=== PATIENT | male | born 1945 | race Two or more races ===

== ENCOUNTER 2021-04-08 08:41 | Inpatient (IN) | payer OTHER ==
[~2021-04-08] VITALS: Ht 172.7 cm; Wt 100.2 kg
[~2021-04-08 08:41] MED LIST: AMLO-489 PO; ASPI1TAB20 PO; ATEN100T PO; BENA20TA14 PO; CITA-73 PO; DONE6TAB PO; FINA5TAB4 PO; INS7030I SC; MEMA1TAB5 PO; OXYB5SYP4 PO; SIMV-13 PO
[2021-04-08] MEDS ORDERED: GLUCAGON HYDROCHLORIDE (RDNA) 1 MG VIAL IV ONE (12:30)
[2021-04-08] MEDS ORDERED: PROPOFOL 10 MG/ML 20 ML IV ONE (13:25)
[2021-04-08] MEDS ORDERED: BUPIVACAINE 0.5% P/F INJ 10 ML VIAL ONE (13:30)
[2021-04-08] MEDS ORDERED: MIDAZOLAM HCL 2MG/2ML 2ml VIAL (1mg/ml) ONE (13:33)
[2021-04-08] MEDS ORDERED: fentaNYL CITRATE 100 MCG/2 ML VL ONE (13:33)
[2021-04-08] MEDS ORDERED: CIPROFLOXACIN 400MG/200ML 200 ML IV ONE (13:43)
[2021-04-08] MEDS ORDERED: diphenhdrAMINE HCL 50 MG/1 ML VL ONE (13:57)
[2021-04-08] MEDS ORDERED: DexAMETHasone SOD PHOS 10MG/1ML VIAL INJ ONE (13:57)
[2021-04-08] MEDS ORDERED: MORPHINE SULFATE INJECTION 2 MG/ML SYRG IV PRN ×2 (14:15→15:30)
[2021-04-08] MEDS ORDERED: HYDROmorphone HCL 2 MG/ML VL IV PRN (14:15)
[2021-04-08] MEDS ORDERED: LABETALOL HCL 5 MG/ML 4ML SYRINGE IV PRN (14:15)
[2021-04-08] MEDS ORDERED: ACCU-CHEK COMFORT CURVE STRIP VI ONE (14:15)
[2021-04-08] MEDS ORDERED: hydrALAZINE HCL 20 MG/ML VL IV PRN (14:15)
[2021-04-08] MEDS ORDERED: ONDANSETRON HCL 4 MG/2 ML VIAL IV PRN (14:15)
[2021-04-08] MEDS ORDERED: MIDAZOLAM HCL 2MG/2ML 2ml VIAL (1mg/ml) IV PRN (14:15)
[2021-04-08] MEDS ORDERED: ePHEDrine SULFATE 50 MG/ML AMP IV PRN (14:15)
[2021-04-08] MEDS ORDERED: GLYCOPYRROLATE 0.2 MG/ML 1ML VIAL ONE (15:05)
[2021-04-08] MEDS ORDERED: NITROGLYCERIN 0.4 MG SL TAB SL PRN (15:30)
[2021-04-08 20:00] VITALS: BP 155/60
[2021-04-08 22:00] VITALS: BP 154/72
[2021-04-09 05:00] VITALS: BP 128/83
[2021-04-09 09:03] VITALS: BP 135/86
[2021-04-09 13:10] VITALS: BP 128/81
[2021-04-09 16:26] VITALS: BP 146/85
[2021-04-09 22:00] VITALS: BP 140/88
[2021-04-09] MEDS: ATORVASTATIN 20 MG TAB PO SCH (22:47)
[2021-04-09] MEDS: DONEPEZIL HYDROCHLORIDE 5 MG TAB PO SCH (22:47)
[2021-04-09] MEDS: MEMANTINE HCL 5 MG TAB PO SCH (22:47)
[2021-04-10 05:00] VITALS: BP 159/104
[2021-04-10 05:58] LABS: Basophils # (auto) 0 10 ^3/uL (0-0.2); Basophils % (auto) 0.3 % (0.0-2.0); Eosinophils # (auto) 0.2 10 ^3/uL (0-0.8); Eosinophils % (auto) 1.6 % (0.0-7.0); Hematocrit 46.9 % (41.0-53.0); Hemoglobin 16.5 g/dL (13.5-17.5); Mean Corpuscular Hemoglobin 29.7 pg (28.0-32.0); Mean Corpuscular Hgb Conc. 35.2 g/dL (32.0-36.0); Mean Corpuscular Volume 84.5 fL (80.0-100.0); Monocytes # (auto) 1.2 10 ^3/uL (0-1.3); Monocytes % (auto) 9.6 % (0.0-12.0); Neutrophils # (auto) 8.8 10 ^3/uL (1.6-8.6); Neutrophils % (auto) 72.5 % (37.0-80.0); Nucleated Red Blood Cells % 0.1 %; Red Blood Cells 5.55 10^6/uL (4.5-5.90); Red Cell Distribution Width 14.1 % (11.8-14.3); White Blood Cell 12.2 10^3/uL (4.4-10.8)
[2021-04-10 06:29] LABS: Calcium 8.4 mg/dL (8.5-10.1); Magnesium 2.4 mg/dL (1.6-2.6); Potassium 3.8 mmol/L (3.5-5.1)
[2021-04-10 06:31] LABS: BUN/Creatinine Ratio 30.3
[2021-04-10 08:00] VITALS: BP 126/78
[2021-04-10 09:00] VITALS: BP 126/78
[2021-04-10] MEDS: CITALOPRAM HYDROBR 20 MG TAB PO SCH (09:35)
[2021-04-10] MEDS: BENAZEPRIL HCL 10 MG TAB PO SCH (09:36)
[2021-04-10] MEDS: MEMANTINE HCL 5 MG TAB PO SCH ×2 (09:36→22:13)
[2021-04-10] MEDS: FINASTERIDE 5 MG TAB PO SCH (09:36)
[2021-04-10] MEDS: amLODIPine BESYLATE 5 MG TAB PO SCH (09:36)
[2021-04-10] MEDS ORDERED: ATENOLOL 50 MG TAB PO SCH (10:00)
[2021-04-10] MEDS ORDERED: ALPRAZolam 0.25 MG TAB PO PRN (12:15)
[2021-04-10 13:00] VITALS: BP 103/59
[2021-04-10 17:00] VITALS: BP 127/80
[2021-04-10 22:00] VITALS: BP 105/55
[2021-04-10] MEDS: DONEPEZIL HYDROCHLORIDE 5 MG TAB PO SCH (22:12)
[2021-04-10] MEDS: ATORVASTATIN 20 MG TAB PO SCH (22:13)
[2021-04-11 05:00] VITALS: BP 145/75
[2021-04-11 06:04] LABS: Basophils # (auto) 0.1 10 ^3/uL (0-0.2); Basophils % (auto) 0.6 % (0.0-2.0); Eosinophils # (auto) 0.4 10 ^3/uL (0-0.8); Eosinophils % (auto) 3.5 % (0.0-7.0); Hematocrit 44.1 % (41.0-53.0); Hemoglobin 15.2 g/dL (13.5-17.5); Lymphocytes # (auto) 2.1 10 ^3/uL (0.4-5.4); Lymphocytes % (auto) 17.2 % (10.0-50.0); Mean Corpuscular Hemoglobin 29.6 pg (28.0-32.0); Mean Corpuscular Hgb Conc. 34.5 g/dL (32.0-36.0); Mean Corpuscular Volume 85.8 fL (80.0-100.0); Monocytes # (auto) 1.3 10 ^3/uL (0-1.3); Monocytes % (auto) 10.4 % (0.0-12.0); Neutrophils # (auto) 8.3 10 ^3/uL (1.6-8.6); Neutrophils % (auto) 68.3 % (37.0-80.0); Nucleated Red Blood Cells % 0.2 %; Red Blood Cells 5.14 10^6/uL (4.5-5.90); Red Cell Distribution Width 13.9 % (11.8-14.3); White Blood Cell 12.2 10^3/uL (4.4-10.8)
[2021-04-11 06:06] LABS: Potassium 3.8 mmol/L (3.5-5.1)
[2021-04-11 06:11] LABS: BUN/Creatinine Ratio 35.9; Calcium 8.2 mg/dL (8.5-10.1)
[2021-04-11 08:00] VITALS: BP 131/72
[2021-04-11 09:00] VITALS: BP 131/72
[2021-04-11] MEDS: CITALOPRAM HYDROBR 20 MG TAB PO SCH (09:42)
[2021-04-11] MEDS: BENAZEPRIL HCL 10 MG TAB PO SCH (09:43)
[2021-04-11] MEDS: FINASTERIDE 5 MG TAB PO SCH (09:43)
[2021-04-11] MEDS: amLODIPine BESYLATE 5 MG TAB PO SCH (09:43)
[2021-04-11] MEDS: MEMANTINE HCL 5 MG TAB PO SCH ×2 (09:43→21:23)
[2021-04-11] MEDS ORDERED: ONDANSETRON HCL 4 MG/2 ML VIAL IV PRN (10:00)
[2021-04-11] MEDS ORDERED: ACETAMINOPHEN 325 MG TAB PO PRN (10:00)
[2021-04-11] MEDS ORDERED: cefTRIAXone 1GM/50ML D5W 50 ML IV ONE (10:00)
[2021-04-11 13:00] VITALS: BP 140/76
[2021-04-11 17:00] VITALS: BP 146/68
[2021-04-11] MEDS: DONEPEZIL HYDROCHLORIDE 5 MG TAB PO SCH (21:22)
[2021-04-11] MEDS: ATORVASTATIN 20 MG TAB PO SCH (21:23)
[2021-04-11 22:00] VITALS: BP 144/62
[2021-04-12 05:00] VITALS: BP 160/72
[2021-04-12 09:00] VITALS: BP 149/70
[2021-04-12] MEDS: cefTRIAXone 1GM/50ML D5W 50 ML IV SCH (09:57)
[2021-04-12] MEDS: BENAZEPRIL HCL 10 MG TAB PO SCH (09:58)
[2021-04-12] MEDS: MEMANTINE HCL 5 MG TAB PO SCH ×2 (09:58→21:42)
[2021-04-12] MEDS: amLODIPine BESYLATE 5 MG TAB PO SCH (09:58)
[2021-04-12] MEDS: FINASTERIDE 5 MG TAB PO SCH (09:58)
[2021-04-12] MEDS: CITALOPRAM HYDROBR 20 MG TAB PO SCH (09:59)
[2021-04-12 13:00] VITALS: BP 146/68
[2021-04-12 16:49] VITALS: BP 144/66
[2021-04-12] MEDS: DONEPEZIL HYDROCHLORIDE 5 MG TAB PO SCH (21:42)
[2021-04-12] MEDS: ATORVASTATIN 20 MG TAB PO SCH (21:42)
[2021-04-12 22:00] VITALS: BP 183/82
[2021-04-12 22:16] VITALS: BP 152/80
[2021-04-13 05:00] VITALS: BP 166/84
[2021-04-13 05:55] LABS: Basophils # (auto) 0.1 10 ^3/uL (0-0.2); Basophils % (auto) 0.8 % (0.0-2.0); Eosinophils # (auto) 0.4 10 ^3/uL (0-0.8); Hematocrit 40.8 % (41.0-53.0); Hemoglobin 14.7 g/dL (13.5-17.5); Lymphocytes # (auto) 1.8 10 ^3/uL (0.4-5.4); Lymphocytes % (auto) 19.5 % (10.0-50.0); Mean Corpuscular Hemoglobin 30.1 pg (28.0-32.0); Mean Corpuscular Volume 83.6 fL (80.0-100.0); Monocytes # (auto) 0.7 10 ^3/uL (0-1.3); Neutrophils # (auto) 6.2 10 ^3/uL (1.6-8.6); Neutrophils % (auto) 67.7 % (37.0-80.0); Red Blood Cells 4.88 10^6/uL (4.5-5.90); Red Cell Distribution Width 14.3 % (11.8-14.3); White Blood Cell 9.2 10^3/uL (4.4-10.8)
[2021-04-13 06:25] LABS: Potassium 4.1 mmol/L (3.5-5.1)
[2021-04-13 06:36] LABS: BUN/Creatinine Ratio 18.4; Calcium 8.3 mg/dL (8.5-10.1); Magnesium 2.4 mg/dL (1.6-2.6)
[2021-04-13 09:00] VITALS: BP 161/71
[2021-04-13] MEDS: cefTRIAXone 1GM/50ML D5W 50 ML IV SCH (09:53)
[2021-04-13] MEDS: CITALOPRAM HYDROBR 20 MG TAB PO SCH (09:53)
[2021-04-13] MEDS: MEMANTINE HCL 5 MG TAB PO SCH ×2 (09:54→21:21)
[2021-04-13] MEDS: BENAZEPRIL HCL 10 MG TAB PO SCH (09:54)
[2021-04-13] MEDS: amLODIPine BESYLATE 5 MG TAB PO SCH (09:55)
[2021-04-13] MEDS: FINASTERIDE 5 MG TAB PO SCH (09:55)
[2021-04-13 13:00] VITALS: BP 148/79
[2021-04-13 16:50] VITALS: BP 156/72
[2021-04-13] MEDS: DONEPEZIL HYDROCHLORIDE 5 MG TAB PO SCH (21:20)
[2021-04-13] MEDS: ATORVASTATIN 20 MG TAB PO SCH (21:21)
[2021-04-13 22:00] VITALS: BP 165/80
[2021-04-14] MEDS ORDERED: hydrALAZINE HCL 20 MG/ML VL IV PRN (03:15)
[2021-04-14 05:00] VITALS: BP 152/77
[2021-04-14] MEDS ORDERED: METOPROLOL TARTRATE 25 MG TAB PO ONE (08:45)
[2021-04-14 09:12] VITALS: BP 131/82
[2021-04-14] MEDS: cefTRIAXone 1GM/50ML D5W 50 ML IV SCH (09:47)
[2021-04-14] MEDS: BENAZEPRIL HCL 10 MG TAB PO SCH (09:47)
[2021-04-14] MEDS: CITALOPRAM HYDROBR 20 MG TAB PO SCH (09:47)
[2021-04-14] MEDS: MEMANTINE HCL 5 MG TAB PO SCH ×2 (09:47→21:02)
[2021-04-14] MEDS: FINASTERIDE 5 MG TAB PO SCH (09:48)
[2021-04-14] MEDS: amLODIPine BESYLATE 5 MG TAB PO SCH (09:48)
[2021-04-14 13:00] VITALS: BP 128/95
[2021-04-14 17:15] VITALS: BP 130/88
[2021-04-14] MEDS: METOPROLOL TARTRATE 25 MG TAB PO SCH (21:01)
[2021-04-14] MEDS: ATORVASTATIN 20 MG TAB PO SCH (21:02)
[2021-04-14] MEDS: DONEPEZIL HYDROCHLORIDE 5 MG TAB PO SCH (21:02)
[2021-04-14 22:00] VITALS: BP 136/92
[2021-04-15 05:00] VITALS: BP 147/75
[2021-04-15 05:32] LABS: Basophils # (auto) 0.1 10 ^3/uL (0-0.2); Basophils % (auto) 0.7 % (0.0-2.0); Eosinophils # (auto) 0.5 10 ^3/uL (0-0.8); Eosinophils % (auto) 4.5 % (0.0-7.0); Hematocrit 42.8 % (41.0-53.0); Hemoglobin 15.5 g/dL (13.5-17.5); Lymphocytes # (auto) 1.9 10 ^3/uL (0.4-5.4); Lymphocytes % (auto) 18.3 % (10.0-50.0); Mean Corpuscular Hemoglobin 30.8 pg (28.0-32.0); Mean Corpuscular Hgb Conc. 36.1 g/dL (32.0-36.0); Mean Corpuscular Volume 85.2 fL (80.0-100.0); Monocytes % (auto) 9.3 % (0.0-12.0); Neutrophils # (auto) 7.1 10 ^3/uL (1.6-8.6); Neutrophils % (auto) 67.2 % (37.0-80.0); Nucleated Red Blood Cells % 0.1 %; Red Blood Cells 5.02 10^6/uL (4.5-5.90); Red Cell Distribution Width 13.7 % (11.8-14.3); White Blood Cell 10.5 10^3/uL (4.4-10.8)
[2021-04-15 05:51] LABS: Potassium 3.9 mmol/L (3.5-5.1)
[2021-04-15 05:58] LABS: BUN/Creatinine Ratio 19.2; Calcium 8.3 mg/dL (8.5-10.1); Magnesium 2.1 mg/dL (1.6-2.6)
[2021-04-15] MEDS: cefTRIAXone 1GM/50ML D5W 50 ML IV SCH (08:58)
[2021-04-15 08:59] VITALS: BP 167/88
[2021-04-15] MEDS: CITALOPRAM HYDROBR 20 MG TAB PO SCH (08:59)
[2021-04-15] MEDS: MEMANTINE HCL 5 MG TAB PO SCH (08:59)
[2021-04-15] MEDS: amLODIPine BESYLATE 5 MG TAB PO SCH (08:59)
[2021-04-15] MEDS: BENAZEPRIL HCL 10 MG TAB PO SCH (08:59)
[2021-04-15] MEDS: FINASTERIDE 5 MG TAB PO SCH (09:00)
[2021-04-15] MEDS: METOPROLOL TARTRATE 25 MG TAB PO SCH (09:00)
[2021-04-15 12:32] VITALS: BP 145/71
[2021-04-15 16:24] VITALS: BP 157/80
[2021-04-15] MEDS ORDERED: METOPROLOL TARTRATE 25 MG TAB PO SCH (21:00)
[2021-04-15] MEDS ORDERED: BENAZEPRIL HCL 10 MG TAB PO SCH (22:00)
== END 2021-04-15 17:05 | disposition home or self-care (01) | DRG 713 ==
LOC: SUR 08:41 → TELE 15:26 → TELE-WESTW 16:33
PROVIDERS: ADMIT Urology; ATTEND Internal Medicine Geriatric Medicine
PROC: 0TBC8ZZ Excision of Bladder Neck, Via Natural or Artificial Opening Endoscopic (ICD-10-PCS; 2021-04-08)
PROC: 0T7D8ZZ Dilation of Urethra, Via Natural or Artificial Opening Endoscopic (ICD-10-PCS; 2021-04-08)
PROC: 0VT08ZZ Resection of Prostate, Via Natural or Artificial Opening Endoscopic (ICD-10-PCS; principal; 2021-04-08 13:45)
DX: N40.1 Benign prostatic hyperplasia with lower urinary tract symptoms (principal); N13.8 Other obstructive and reflux uropathy; R00.1 Bradycardia, unspecified; G30.9 Alzheimer's disease, unspecified; E11.9 Type 2 diabetes mellitus without complications; F02.80 Dementia in other diseases classified elsewhere, unspecified severity, without behavioral disturbance, psychotic disturbance, mood disturbance, and anxiety; E66.9 Obesity, unspecified; I10 Essential (primary) hypertension; N35.919 Unspecified urethral stricture, male, unspecified site; E78.5 Hyperlipidemia, unspecified; N47.1 Phimosis; F41.9 Anxiety disorder, unspecified; I48.91 Unspecified atrial fibrillation; R31.9 Hematuria, unspecified; Z79.4 Long term (current) use of insulin; Z68.35 Body mass index [BMI] 35.0-35.9, adult; Z79.01 Long term (current) use of anticoagulants; Z79.899 Other long term (current) drug therapy
CPT/HCPCS: 36415; 80048; 82962; 83735; 85025; 93005; G0378; J0696; J1100; J2250; J2704; J3490; J7042